=== PATIENT | female | born 1990 | race African-American/Black ===

== ENCOUNTER 2017-09-11 14:02 | Emergency (ER) | payer OTHER ==
--- NOTE | 2017-09-11 14:51 | ED GI/GU/ABDOMINAL COMPLAINT ---
History of Present Illness General Chief Complaint: Abdominal Pain/Flank Pain Stated Complaint: RT SIDED ABD PAIN SINCE THIS AM Source: patient Exam Limitations: no limitations Vital Signs & Intake/Output Vital Signs & Intake/Output Vital Signs Date Time Temp Pulse Resp B/P B/P Pulse O2 O2 Flow FiO2 Mean Ox Delivery Rate 09/11 1623 98.1 68 18 118/56 99 Room Air 09/11 1451 Room Air 09/11 1450 68 18 156/89 99 Room Air 09/11 1406 99.0 79 18 142/82 97 Room Air Room Air Allergies Coded Allergies: No Known Allergies (05/30/17) Reconcile Medications Oxycodone HCl/Acetaminophen (Percocet 5-325 MG Tablet) 5 MG-325 MG TABLET 1 TAB PO TID PRN KIDNEY STONE Propranolol HCl 10 MG TABLET 1 TAB PO PRN ANXIETY (Reported) Triage Note: TRIAGE: 27 Y/O FEMALE PRESENTS C/O LRQ ABDOMINAL PAIN AND NAUSEA SICNE THIS MORNING. DENIES URINARY SYMPTOMS. Triage Nurses Notes Reviewed? yes ? n Is pt currently ? No HPI: 27yo female who presents today with abdominal pain that started this morning. Pt ate out for dinner yesterday and felt fine when she went to bed last night. Pt woke up with sharp pain localized to the right upper quadrant with radiation to the back and pelvic region. She has had no appetite since the morning and has not eaten anything all day. Pt also complains of diarrhea that started this morning. Denies any fevers, chills, vomitting, chest pain, shortness of breathe, dysuria, gross blood. LMP was at the end of July and is expected at any time. Pt denies any chance of as she in a monogomous relationship with her female fiance. No sick contacts. Past History Travel History Traveled to [place] past 21 day No Medical History Any Pertinent Medical History? 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 No Review of Systems Review of Systems Constitutional: Reports: no symptoms. EENTM: Reports: no symptoms. Respiratory: Reports: no symptoms. Cardiovascular: Reports: no symptoms. GI: Reports: no symptoms. Genitourinary: Reports: no symptoms. Musculoskeletal: Reports: no symptoms. Skin: Reports: no symptoms. Neurological/Psychological: Reports: no symptoms. Hematologic/Endocrine: Reports: no symptoms. Immunologic/Allergic: Reports: no symptoms. All Other Systems: Reviewed and Negative Physical Exam Physical Exam General Appearance: well developed/nourished, no apparent distress Head: atraumatic, normal appearance Eyes: Bilateral: normal appearance. Ears, Nose, Throat, Mouth: hearing grossly normal, moist mucous membrane Neck: normal inspection, supple, full range of motion Respiratory: normal breath sounds, chest non-tender, no respiratory distress Cardiovascular: regular rate/rhythm Gastrointestinal: soft, non-tender Back: normal inspection, normal range of motion Extremities: normal range of motion Neurologic/Psych: awake, alert, oriented x 3, normal mood/affect Skin: intact, normal color, warm/dry Core Measures ACS in differential dx? No Sepsis Present: No Sepsis Focused Exam Completed? No Progress Differential Diagnosis: AAA, AMI, appendicitis, biliary colic, bowel obstruction , colon cancer, cholecystitis, diverticulitis, ectopic , endometritis, esophageal varices, gastritis, hepatitis, hernia, hemorrhoids, ischemic bowel, inflamm bowel dis, intrauterine , kidney stone, [place] tear, ovarian cyst, ovarian torsion, pancreatitis, PID/cervicitis, peptic ulcer, PUD/ GERD, perforated viscous, SBO, threatened AB, UTI/pyelo Plan of Care: Orders Procedure Date/time Status URINE 09/11 140 Complete URINALYSIS 09/11 140 Complete LIPASE 09/11 140 Complete COMPREHENSIVE METABOLIC PANEL 09/11 140 Complete CBC WITHOUT DIFFERENTIAL 09/11 1405 Complete Laboratory Tests 09/11/17 1517: Urine Color YEL, Urine Clarity CLEAR, Urine pH 6.0, Ur Specific [place] 1.025, Urine Protein NEG, Urine Ketones NEG, Urine Nitrite NEG, Urine Bilirubin NEG, Urine Urobilinogen 0.2, Ur Leukocyte Esterase NEG, Ur Microscopic SEDIMENT EXAMINED, Urine RBC FEW H, Urine WBC 1-3 H, Ur Epithelial Cells FEW, Urine Bacteria FEW H, Urine Hemoglobin TRACE-INTACT, Urine Glucose NEG, Urine Test NEGATIVE 09/11/17 1444: Anion Gap 12, Estimated GFR > 60, BUN/Creatinine Ratio 16.3, Glucose 94, Calcium 9.5, Total Bilirubin 0.3, AST 15, ALT 28, Alkaline Phosphatase 63, Total Protein 6.8, Albumin 3.8, Globulin 3.0, Albumin/Globulin Ratio 1.3, Lipase 46, CBC w Diff NO MAN DIFF REQ, RBC 4.95, MCV 69.1 L, MCH 21.8 L, MCHC 31.6 L, RDW 16.8 H, MPV 8.3, Gran % 47.6, Lymphocytes % 44.2, Monocytes % 6.6, Eosinophils % 1.2 , Basophils % 0.4, Absolute Granulocytes 4.7, Absolute Lymphocytes 4.3 H, Absolute Monocytes 0.6, Absolute Eosinophils 0.1, Absolute Basophils 0 Diagnostic Imaging: Viewed by Me: CT Scan, Ultrasound. Discussed w/RAD: CT Scan, Ultrasound. Radiology Impression: PATIENT: ROMANA PRATT PRESENT AGE: 27 PATIENT ACCOUNT NO: [id number] : 92 LOCATION: [facility] ORDERING PHYSICIAN: Onel Restrepo MD SERVICE DATE: 09/11/17 EXAM TYPE: US - US -LIMITED ABDOMEN EXAMINATION: US ABDOMEN LIMITED CLINICAL INFORMATION: Right upper quadrant pain.. COMPARISON: None TECHNIQUE: Real-time imaging of the right upper quadrant abdominal viscera. Color Doppler exam used. FINDINGS: PANCREAS: Normal. LIVER: There is mild increased diffuse echogenicity of liver parenchyma due to fatty change. The liver is slightly prominent in size measuring 19 cm superior inferior. No focal liver lesion. No intrahepatic bile duct dilatation. GALLBLADDER: Normal. The gallbladder is physiologically distended without evidence of stones, sludge, polyps, wall thickening or pericholecystic fluid. COMMON BILE DUCT: Normal in caliber measuring 0.2 cm in diameter. RIGHT KIDNEY: Normal. No hydronephrosis. No renal calculi or focal parenchymal lesions. The kidney measures 12.7 cm in maximum dimension. FREE FLUID: None. IMPRESSION: 1. No acute abnormality. 2. Diffuse fatty change of liver. Mild hepatomegaly. 3. No gallstone or acute change of gallbladder. No bile duct dilatation. DICTATED BY: Rocco Paredes MD DATE/TIME DICTATED:09/11/171551 TANK FURNACE OPERATOR:ANDREINA DATE/TIME TRANSCRIBED:09/11/171551 CONFIDENTIAL, DO NOT COPY WITHOUT APPROPRIATE AUTHORIZATION. <Electronically signed in Other Vendor System> SIGNED BY: Rocco Paredes MD 09/11/17 7403, PATIENT: ROMANA PRATT PRESENT AGE: 27 PATIENT ACCOUNT NO: [id number] : 92 LOCATION: [facility] ORDERING PHYSICIAN: Onel Restrepo MD SERVICE DATE: 09/11/17 EXAM TYPE: CAT - CT ABD & PELVIS W/O IV CONTRAS EXAMINATION: CT ABDOMEN AND PELVIS WITHOUT CONTRAST CLINICAL INFORMATION: Right upper quadrant pain. Right flank pain. COMPARISON: None TECHNIQUE: Multidetector volumetric imaging was performed from the superior aspect of the liver through the pubic symphysis. Sagittal and coronal reformatted images were obtained on the technologist's workstation. DLP: 1293.88 mGy-cm FINDINGS: LUNG BASES: The visualized lung bases are unremarkable. LIVER, GALLBLADDER, AND BILIARY TREE: No focal liver lesion. No intrapelvic bile duct dilatation. The right lobe of liver measures 20 cm superior inferior. The gallbladder is unremarkable with no evidence of radiopaque gallstones, gallbladder wall thickening, or obvious pericholecystic inflammatory changes. PANCREAS: Unremarkable. SPLEEN: Unremarkable. ADRENAL GLANDS: Unremarkable. KIDNEYS AND URETERS: There is no hydronephrosis of either kidney. There is however a 4 x 5 mm stone at the right ureteropelvic junction, axial image 276 (3 ). There is no hydroureter. Left kidney and collecting system are normal. The kidneys are of normal size and contour. BLADDER: Unremarkable. GASTROINTESTINAL TRACT: The small and large bowel are unremarkable. The appendix is unremarkable. ABDOMINAL WALL: No significant hernia is appreciated. LYMPH NODES: Normal. VASCULAR: Unremarkable. PELVIC VISCERA: There is a right adnexal cystic lesion likely related to the ovary measuring 4.5 x 3.7 x 3.1 cm. Density measurement 14 Hounsfield units. The left ovary measures 2.6 x 2.9 x 2.5 cm. The uterus is anteverted. There is no fluid in the cul-de-sac. OSSEOUS STRUCTURES: Unremarkable. IMPRESSION: 1. 4 x 5 mm stone at the right ureterovesical junction without hydronephrosis or hydroureter. 2. Right adnexal cyst measuring 4.5 cm. Initial ED EKG: none Departure Departure Disposition: HOME OR SELF CARE Condition: Stable Clinical Impression Primary Impression: Nephrolithiasis Secondary Impressions: Renal colic on right side Referrals: Shaka KOROMA,Bill Quintero Patient Has No Primary Care Dr (PCP/Family) Additional Instructions: Follow up with the urologist. Drink plenty of water. You can take Motrin for mild pain and Percocet for severe pain, but do not drive or operate machinery while taking Percocet, as it may cause you to be sleepy or confused. If you experience fever, chills, change in urine, worsening pain, or any other new or worsening symptom, return to ER. Departure Forms: Customer Survey General Discharge Information Prescriptions: Current Visit Scripts Oxycodone HCl/Acetaminophen (Percocet 5-325 MG Tablet) 1 TAB PO TID PRN KIDNEY STONE #15 TAB
[2017-09-11 14:58] LABS: ABSOLUTE BASOPHIL COUNT 0 /CUMM (0.0-0.2); ABSOLUTE EOSINOPHIL COUNT 0.1 /CUMM (0.0-0.7); ABSOLUTE GRANULOCYTE CT 4.7 /CUMM (1.4-6.5); ABSOLUTE LYMPH COUNT 4.3 /CUMM (1.2-3.4); ABSOLUTE MONOCYTE COUNT 0.6 /CUMM (0.10-0.60); BASOPHIL % 0.4 % (0.0-2.0); EOSINOPHIL % 1.2 % (0-5); GRANULOCYTE % 47.6 % (42.2-75.2); HEMATOCRIT 34.2 % (37-47); MEAN CORPUSCULAR HGB 21.8 PG (27.0-31.0); MEAN CORPUSCULAR HGB CONC 31.6 G/DL (33.0-37.0); MEAN CORPUSCULAR VOLUME 69.1 FL (81.0-99.0); MEAN PLATELET VOLUME 8.3 FL (7.4-10.4); PLATELET COUNT 488 /CUMM (130-400); RBC DISTRIBUTION WIDTH 16.8 % (11.5-14.5); RED BLOOD CELL CT 4.95 /CUMM (4.20-5.40)
[2017-09-11 15:05] LABS: WHITE BLOOD CELL COUNT 9.8 /CUMM (4.8-10.8)
--- NOTE | 2017-09-11 15:57 | ULTRASOUND REPORT ---
EXAMINATION: US ABDOMEN LIMITED CLINICAL INFORMATION: Right upper quadrant pain.. COMPARISON: None TECHNIQUE: Real-time imaging of the right upper quadrant abdominal viscera. Color Doppler exam used. FINDINGS: PANCREAS: Normal. LIVER: There is mild increased diffuse echogenicity of liver parenchyma due to fatty change. The liver is slightly prominent in size measuring 19 cm superior inferior. No focal liver lesion. No intrahepatic bile duct dilatation. GALLBLADDER: Normal. The gallbladder is physiologically distended without evidence of stones, sludge, polyps, wall thickening or pericholecystic fluid. COMMON BILE DUCT: Normal in caliber measuring 0.2 cm in diameter. RIGHT KIDNEY: Normal. No hydronephrosis. No renal calculi or focal parenchymal lesions. The kidney measures 12.7 cm in maximum dimension. FREE FLUID: None. IMPRESSION: 1. No acute abnormality. 2. Diffuse fatty change of liver. Mild hepatomegaly. 3. No gallstone or acute change of gallbladder. No bile duct dilatation.
--- NOTE | 2017-09-11 16:19 | CT SCAN REPORT ---
EXAMINATION: CT ABDOMEN AND PELVIS WITHOUT CONTRAST CLINICAL INFORMATION: Right upper quadrant pain. Right flank pain. COMPARISON: None TECHNIQUE: Multidetector volumetric imaging was performed from the superior aspect of the liver through the pubic symphysis. Sagittal and coronal reformatted images were obtained on the technologist's workstation. DLP: 1293.88 mGy-cm FINDINGS: LUNG BASES: The visualized lung bases are unremarkable. LIVER, GALLBLADDER, AND BILIARY TREE: No focal liver lesion. No intrapelvic bile duct dilatation. The right lobe of liver measures 20 cm superior inferior. The gallbladder is unremarkable with no evidence of radiopaque gallstones, gallbladder wall thickening, or obvious pericholecystic inflammatory changes. PANCREAS: Unremarkable. SPLEEN: Unremarkable. ADRENAL GLANDS: Unremarkable. KIDNEYS AND URETERS: There is no hydronephrosis of either kidney. There is however a 4 x 5 mm stone at the right ureteropelvic junction, axial image 276 (3). There is no hydroureter. Left kidney and collecting system are normal. The kidneys are of normal size and contour. BLADDER: Unremarkable. GASTROINTESTINAL TRACT: The small and large bowel are unremarkable. The appendix is unremarkable. ABDOMINAL WALL: No significant hernia is appreciated. LYMPH NODES: Normal. VASCULAR: Unremarkable. PELVIC VISCERA: There is a right adnexal cystic lesion likely related to the ovary measuring 4.5 x 3.7 x 3.1 cm. Density measurement 14 Hounsfield units. The left ovary measures 2.6 x 2.9 x 2.5 cm. The uterus is anteverted. There is no fluid in the cul-de-sac. OSSEOUS STRUCTURES: Unremarkable. IMPRESSION: 1. 4 x 5 mm stone at the right ureterovesical junction without hydronephrosis or hydroureter. 2. Right adnexal cyst measuring 4.5 cm.
[2017-09-11 16:23] VITALS: BP 118/56
[2017-09-11] MEDS ORDERED: PERCOCET 5-3251 EACH PO (16:34)
[2017-09-11] MEDS ORDERED: PROPRANOLOL HCL10 M1 PO (16:38)
== END 2017-09-11 16:35 ==
LOC: ERH 14:02
PROVIDERS: Physician Assistant Medical
DX: N20.0 Calculus of kidney (principal); N23 Unspecified renal colic
CPT/HCPCS: 74176; 81001; 81025; 96374; 96375; J1885; J2405

== ENCOUNTER 2017-09-17 15:44 | Observation (INO) | payer OTHER ==
[~2017-09-17] VITALS: Ht 160 cm; Wt 117.9 kg
[~2017-09-17 15:44] MED LIST: PERCOCET 5-3251 EACH PO; PROPRANOLOL HCL10 M1 PO
[2017-09-17 16:37] LABS: ABSOLUTE BASOPHIL COUNT 0 /CUMM (0.0-0.2); ABSOLUTE EOSINOPHIL COUNT 0.1 /CUMM (0.0-0.7); ABSOLUTE GRANULOCYTE CT 6.3 /CUMM (1.4-6.5); BASOPHIL % 0.3 % (0.0-2.0); EOSINOPHIL % 0.8 % (0-5); GRANULOCYTE % 66.9 % (42.2-75.2); HEMATOCRIT 31.7 % (37-47); MEAN CORPUSCULAR HGB 21.7 PG (27.0-31.0); MEAN CORPUSCULAR HGB CONC 31.9 G/DL (33.0-37.0); MEAN CORPUSCULAR VOLUME 67.9 FL (81.0-99.0); MEAN PLATELET VOLUME 8.1 FL (7.4-10.4); PLATELET COUNT 448 /CUMM (130-400); RBC DISTRIBUTION WIDTH 16.7 % (11.5-14.5); RED BLOOD CELL CT 4.67 /CUMM (4.20-5.40); WHITE BLOOD CELL COUNT 9.4 /CUMM (4.8-10.8)
--- NOTE | 2017-09-17 17:20 | ED GENERAL ADULT ---
History of Present Illness General Chief Complaint: General Adult Stated Complaint: "KIDNEY STONE,HIGH HEART RT,FEVER" 111 ON PULSE OX Source: patient, family Exam Limitations: no limitations Vital Signs & Intake/Output Vital Signs & Intake/Output Vital Signs Date Time Temp Pulse Resp B/P B/P Pulse O2 O2 Flow FiO2 Mean Ox Delivery Rate 09/17 1821 99.5 87 18 137/67 97 Room Air 09/17 1656 102.4 09/17 1551 100.7 103 18 127/85 98 Room Air Allergies Coded Allergies: oxycodone (VOMITING 09/17/17) Reconcile Medications Oxycodone HCl/Acetaminophen (Percocet 5-325 MG Tablet) 5 MG-325 MG TABLET 1 TAB PO TID PRN KIDNEY STONE Propranolol HCl 10 MG TABLET 1 TAB PO PRN ANXIETY (Reported) Triage Note: PT WAS DX W NEPHROLITHIASIS LAST WEEK TO RIGHT SIDE, HAS APPT WITH DR NEELY SEP 26 FOR LITHOTRIPSY BUT FEELS THE PAIN HAS BEEN GETTING WORSE, MOVING MORE CENTRALLY TO BACK AND HAS HAD FEVERS. STATES TEMP WAS 102 AT HOME, 100.7 IN TRIAGE. HAS BEEN TAKING 1,500MG OF TYLENOL AT A TIME AND STATES SHE WAS TOLD NOT TO TAKE NSAIDS. Triage Nurses Notes Reviewed? yes : No Patient currently breastfeeds: No HPI: 27-year-old female comes in with pain in the right side. She reports that she was recently diagnosed with renal colic. She was seen by the urologist and had an appointment for stent placement. She continues to have pain and started having fevers with worsening pain so she came in for evaluation. She denies vomiting. She denies diarrhea. Past History Travel History Traveled to [place] past 21 day No Medical History Any Pertinent Medical History? 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 Yes Review of Systems Review of Systems Constitutional: Reports: chills, fever. EENTM: Denies: blurred vision, double vision, visual changes. Respiratory: Denies: cough, hemoptysis, orthopnea. Cardiovascular: Denies: chest pain, edema, orthopena. GI: Reports: abdominal pain, nausea. Denies: bloating, constipation. Genitourinary: Denies: dysuria, frequency, hematuria. Musculoskeletal: Denies: back pain, gout, joint pain. Skin: Denies: cysts, change in skin color. Neurological/Psychological: Denies: anxiety, ataxia. Physical Exam Physical Exam General Appearance: well developed/nourished, no apparent distress, alert, awake Head: atraumatic, normal appearance Eyes: Bilateral: EOMI, pale conjunctivae. Ears, Nose, Throat: normal pharynx, normal ENT inspection Neck: normal inspection, supple Respiratory: normal breath sounds, chest non-tender, no respiratory distress Gastrointestinal: see below Back: normal inspection, normal range of motion Extremities: normal inspection, normal capillary refill, normal range of motion Neurologic/Psych: no motor/sensory deficits, awake, alert, oriented x 3 Skin: intact, normal color, warm/dry Comments: RLQ tendereness and R CVAT. no preitoneal signs. no rash. normal BS Core Measures ACS in differential dx? No CVA/TIA Diagnosis: No Sepsis Present: No Sepsis Focused Exam Completed? No Progress Differential Diagnoses Review of old records from September 11 showed that the patient had a right UVJ stone. She now had complete relief, she continued to have the pain and saw the urologist. The patient now has signs of urinary infection with a fever. We will check a lactate, start the patient on antibiotics. I have spoken with the urologist, Dr. Neely and she will accept patient for admission. Plan of Care: Orders Procedure Date/time Status Nothing by Mouth 09/18 B Active CBC WITHOUT DIFFERENTIAL 09/18 0600 Active BASIC ELECTROLYTES PLUS BUN&CR 09/18 0600 Active Regular Diet 09/17 D Complete Pathway - chart 09/17 1752 Active Patient Data 09/17 1752 Active Code Status 09/[address] in observation 09/17 1731 Active ED Holding Orders 09/17 1731 Active Code Status 09/17 1731 Complete Saline Lock 09/17 1706 Active LACTIC ACID 09/17 1706 Complete CULTURE,URINE 09/17 1550 Active URINALYSIS 09/17 1550 Complete LIPASE 09/17 1550 Complete CBC WITHOUT DIFFERENTIAL 09/17 1550 Complete BASIC METABOLIC PANEL 09/17 1550 Complete VTE Mechanical Prophylaxis 09/17 UNK Active Vital Signs 09/17 UNK Active Intake & Output 09/17 UNK Active Activity/Ambulation 09/17 UNK Active Current Medications Sig/Kb Start time Last Medication Dose Stop Time Status Admin Ceftriaxone Sodium 1,000 MG DAILY@1730 09/18 1730 AC (Rocephin) Acetaminophen 1,000 MG Q6H 09/17 1800 AC (Ofirmev) 09/18 1214 N/A 1 UNIT (No Carrier) Dextrose/Sodium 1,000 ML .Q10H 09/17 1800 AC Chloride (D5W-1/2 Normal Saline 1000ML) Morphine Sulfate 4 MG Q3P PRN 09/17 1800 AC (MORPHINE SULFATE) Morphine Sulfate 6 MG Q3P PRN 09/17 1800 AC (MORPHINE SULFATE) Ondansetron HCl 4 MG Q8P PRN 09/17 1800 AC (Zofran) Laboratory Tests 09/17/17 1630: Urine Color YEL, Urine Clarity HAZY H, Urine pH 6.0, Ur Specific [place] 1.015, Urine Protein TRACE H, Urine Ketones 15 H, Urine Nitrite NEG, Urine Bilirubin NEG, Urine Urobilinogen 4.0 H, Ur Leukocyte Esterase SMALL H, Ur Microscopic SEDIMENT EXAMINED, Urine RBC 3-5, Urine WBC 3-5 H, Ur Epithelial Cells MOD H, Urine Bacteria MANY H, Urine Hemoglobin SMALL H, Urine Glucose NEG 09/17/17 1624: Lactic Acid 0.9 09/17/17 1624: Anion Gap 11, Estimated GFR > 60, BUN/Creatinine Ratio 8.0, Glucose 87, Calcium 9.1, Lipase 31, CBC w Diff NO MAN DIFF REQ, RBC 4.67, MCV 67.9 L, MCH 21.7 L, MCHC 31.9 L, RDW 16.7 H, MPV 8.1, Gran % 66.9, Lymphocytes % 21.7, Monocytes % 10.3 H, Eosinophils % 0.8, Basophils % 0.3, Absolute Granulocytes 6.3, Absolute Lymphocytes 2.0, Absolute Monocytes 1.0 H, Absolute Eosinophils 0.1, Absolute Basophils 0 Microbiology 09/17 1630 URINE ROUT: Urine Culture - RECD Initial ED EKG: none Departure Departure Time of Disposition: 1718 Disposition: STILL A PATIENT Condition: Stable Clinical Impression Primary Impression: Renal colic Secondary Impressions: Renal colic on right side, UTI (urinary tract infection) Referrals: Patient Has No Primary Care Dr (PCP/Family) Departure Forms: Customer Survey General Discharge Information Observation Note Spoke With: Liz Neely MD Rationale for Observation: My rational for observation is as follows infected kidney stone, the patient will have a stent placed and needs IV antibiotics to prevent renal failure and sepsis. Critical Care Note Critical Care Note Critical Care Time: non-applicable
--- NOTE | 2017-09-17 19:34 | History & Physical Pre-Op ---
General Information and HPI Source of Information: patient History of Present Illness: This is a 27 year-old female with a history of anxiety and depression who presents with right sided flank pain with associated fever of 102 F. She reports taking three 500 mg tabs of Tylenol at home today. She reports that she was recently diagnosed at [facility] with a right kidney stone last week. She followed up with Dr. Neely and was scheduled to have a lithotripsy on 09/26/17. Due to worsening and persistent pain, she returned to the ER for further evaluation. She reports increased urine frequency due to increaed oral intake. She denies hematuia, dysuria, chills, night sweats, nausea, vomiting or bowel changes. 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 Surgical History Pertinent Surgical History: non-contributory Past Family/Social History Psychosocial History ETOH Use: denies use Illicit Drug Use: denies illicit drug use Employment History Employment: Employed ([employer]) Review of Systems Review of Systems: Refer to H&P Exam & Diagnostic Data Last 24 Hrs of Vital Signs/I&O Vital Signs Date Time Temp Pulse Resp B/P B/P Pulse O2 O2 Flow FiO2 Mean Ox Delivery Rate 09/17 1821 99.5 87 18 137/67 97 Room Air 09/17 1656 102.4 09/17 1551 100.7 103 18 127/85 98 Room Air Intake & Output 09/17 1600 09/17 0800 09/17 0000 Intake Total Output Total Balance Patient 260 lb Weight Physical Exam: General: Resting comfortably in nad HEENT: NC/AT, sclera anicteric, moist mucus membranes Cardiac: S1S2 noted, RRR Lungs: Good inspiratory effort, CTAB Abdomen: Soft, obese, with right mid-lower quadrant tenderness extending to the lateral side, no cva tenderness noted B/L, no rebound or guarding noted Extremities: no significant edema or calf tenderness Last 24 Hrs of Labs/Thiago: Laboratory Tests 09/17/17 1630: Urine Color YEL, Urine Clarity HAZY H, Urine pH 6.0, Ur Specific [place] 1.015, Urine Protein TRACE H, Urine Ketones 15 H, Urine Nitrite NEG, Urine Bilirubin NEG, Urine Urobilinogen 4.0 H, Ur Leukocyte Esterase SMALL H, Ur Microscopic SEDIMENT EXAMINED, Urine RBC 3-5, Urine WBC 3-5 H, Ur Epithelial Cells MOD H, Urine Bacteria MANY H, Urine Hemoglobin SMALL H, Urine Glucose NEG 09/17/17 1624: Lactic Acid 0.9 09/17/17 162: Anion Gap 11, Estimated GFR > 60, BUN/Creatinine Ratio 8.0, Glucose 87, Calcium 9.1, Lipase 31, CBC w Diff NO MAN DIFF REQ, RBC 4.67, MCV 67.9 L, MCH 21.7 L, MCHC 31.9 L, RDW 16.7 H, MPV 8.1, Gran % 66.9, Lymphocytes % 21.7, Monocytes % 10.3 H, Eosinophils % 0.8, Basophils % 0.3, Absolute Granulocytes 6.3, Absolute Lymphocytes 2.0, Absolute Monocytes 1.0 H, Absolute Eosinophils 0.1, Absolute Basophils 0 Microbiology 09/17 163 URINE ROUT: Urine Culture - RECD Diagnostic Data Other Results SERVICE DATE: 09/11/17 EXAM TYPE: CAT - CT ABD & PELVIS W/O IV CONTRAS EXAMINATION: CT ABDOMEN AND PELVIS WITHOUT CONTRAST CLINICAL INFORMATION: Right upper quadrant pain. Right flank pain. COMPARISON: None TECHNIQUE: Multidetector volumetric imaging was performed from the superior aspect of the liver through the pubic symphysis. Sagittal and coronal reformatted images were obtained on the technologist's workstation. DLP: 1293.88 mGy-cm FINDINGS: LUNG BASES: The visualized lung bases are unremarkable. LIVER, GALLBLADDER, AND BILIARY TREE: No focal liver lesion. No intrapelvic bile duct dilatation. The right lobe of liver measures 20 cm superior inferior. The gallbladder is unremarkable with no evidence of radiopaque gallstones, gallbladder wall thickening, or obvious pericholecystic inflammatory changes. PANCREAS: Unremarkable. SPLEEN: Unremarkable. ADRENAL GLANDS: Unremarkable. KIDNEYS AND URETERS: There is no hydronephrosis of either kidney. There is however a 4 x 5 mm stone at the right ureteropelvic junction, axial image 276 (3). There is no hydroureter. Left kidney and collecting system are normal. The kidneys are of normal size and contour. BLADDER: Unremarkable. GASTROINTESTINAL TRACT: The small and large bowel are unremarkable. The appendix is unremarkable. ABDOMINAL WALL: No significant hernia is appreciated. LYMPH NODES: Normal. VASCULAR: Unremarkable. PELVIC VISCERA: There is a right adnexal cystic lesion likely related to the ovary measuring 4.5 x 3.7 x 3.1 cm. Density measurement 14 Hounsfield units. The left ovary measures 2.6 x 2.9 x 2.5 cm. The uterus is anteverted. There is no fluid in the cul-de-sac. OSSEOUS STRUCTURES: Unremarkable. IMPRESSION: 1. 4 x 5 mm stone at the right ureterovesical junction without hydronephrosis or hydroureter. 2. Right adnexal cyst measuring 4.5 cm. Assessment/Plan Assessment/Plan: This is an 27 year-old female with a history of anxitey, depression and a known 4 x 5 mm stone at the right ureterovesical junction who presents with renal colic and associated fever. Patient will be placed in observation in anticipation of surgical intervention tomorrow morning for stent placement with Dr. Neely. She may have a regular diet for dinner and kept npo after midnight with IV fluids. She recieved IV Rocephin in the ER, which she will remain on until surgery tomorrow. She will be provided with IV analgesics, antipyretics and antimetics. Plan of care discussed with Dr. Neely who is in agreement. As Ranked By This Provider Problem List: 1. Renal colic on right side
[2017-09-17 21:59] VITALS: BP 116/74
[2017-09-18 06:20] VITALS: BP 118/70
--- NOTE | 2017-09-18 07:03 | PN- Student ---
Parvin Fofana 09/18/17 0657: Subjective Subjective: This morning she is feeling much better than when she came into the ED yesterday. Had some slight nausea last night requiring zofran, no epidoes of vomiting. Tolerated dinner last night. Pt's only complaint at this time is right sided flank pain that is well controlled w/ pain regimen. Denies cp,sob, dysuria , hematuria. Pt is scheduled to go for right sided stent placement today. Objective Objective: Vital Signs Date Time Temp Pulse Resp B/P B/P Pulse O2 O2 Flow FiO2 Mean Ox Delivery Rate 09/18 0620 98.8 90 18 118/70 97 Room Air 09/18 0012 99.1 09/17 2159 98.2 92 18 116/74 98 09/17 2000 99.2 09/17 1821 99.5 87 18 137/67 97 Room Air 09/17 1656 102.4 09/17 1551 100.7 103 18 127/85 98 Room Air Last 24 Hours I&Os 09/18 0800 09/18 0000 09/17 1600 Intake Total 1400 Output Total Balance 1400 Intake, IV 1300 Intake, Oral 100 Patient 260 lb 260 lb Weight Laboratory Tests 09/17/17 1630: Urine Color YEL, Urine Clarity HAZY H, Urine pH 6.0, Ur Specific [place] 1.015, Urine Protein TRACE H, Urine Ketones 15 H, Urine Nitrite NEG, Urine Bilirubin NEG, Urine Urobilinogen 4.0 H, Ur Leukocyte Esterase SMALL H, Ur Microscopic SEDIMENT EXAMINED, Urine RBC 3-5, Urine WBC 3-5 H, Ur Epithelial Cells MOD H, Urine Bacteria MANY H, Urine Hemoglobin SMALL H, Urine Glucose NEG 09/17/17 1624: Lactic Acid 0.9 09/17/17 1624: Anion Gap 11, Estimated GFR > 60, BUN/Creatinine Ratio 8.0, Glucose 87, Calcium 9.1, Lipase 31, CBC w Diff NO MAN DIFF REQ, RBC 4.67, MCV 67.9 L, MCH 21.7 L, MCHC 31.9 L, RDW 16.7 H, MPV 8.1, Gran % 66.9, Lymphocytes % 21.7, Monocytes % 10.3 H, Eosinophils % 0.8, Basophils % 0.3, Absolute Granulocytes 6.3, Absolute Lymphocytes 2.0, Absolute Monocytes 1.0 H, Absolute Eosinophils 0.1, Absolute Basophils 0 Microbiology Date/Time Procedure - Status Source Growth 09/17 1630 Urine Culture - RECD URINE ROUT Orders Procedure Date/time Status Nothing by Mouth 09/18 B Active CBC WITHOUT DIFFERENTIAL 09/18 06 Active BASIC ELECTROLYTES PLUS BUN&CR 09/18 06 Active Regular Diet 09/17 D Complete Vital Signs 09/17 2036 Active Teach/Educate 09/17 2036 Active Pain Treatment and Response 09/17 2036 Active Nutritional Intake, Monitor 09/17 2036 Active Isolation 09/17 2036 Active Intake & Output 09/17 2036 Active Patient Care Conference 09/17 2036 Active Activity/Ambulation 09/17 2036 Active Pathway - chart 09/17 175 Active Patient Data 09/17 175 Active Code Status 09/[address] in observation 09/17 1731 Active ED Holding Orders 09/17 173 Active Code Status 09/17 1731 Complete Saline Lock 09/17 1706 Active LACTIC ACID 09/17 1706 Complete CULTURE,URINE 09/17 1550 Active URINALYSIS 09/17 1550 Complete LIPASE 09/17 1550 Complete CBC WITHOUT DIFFERENTIAL 09/17 1550 Complete BASIC METABOLIC PANEL 09/17 1550 Complete VTE Mechanical Prophylaxis 09/17 UNK Active Vital Signs 09/17 UNK Active Intake & Output 09/17 UNK Active Activity/Ambulation 09/17 UNK Active Gen: O&Ax3, laying down in bed, in no apparent distress Lungs: CTA Heart: distant heart sounds, S1 and S2 normal, RRR Abd: hypoactive bs, soft, nondistended, right llq and right flank pain upon palpation, no guarding, no rigidity LE: no edema, skin is warm and dry Assessment/Plan Assessment: Pt is a 27 yo female with a PMHx of anxiety and depression that presented with a fever and worsening pain yesterday from a right sided renal stone. Plan: -Pt will go for stent placement today -NPO until surgery -C/w IV fluids -Rocephin perioperatively -ALPS for dvt ppx -No stern, voiding ok -IV tylenol for pain -Urine culture pending -Encourage oob and ambulation -Advance diet after surgery as tolerated -Pt may be d/c'd later today depending on how procedure goes Chalino Mercer 09/18/17 0709: Resident Review Statement Other Findings: Patient seen and examed. Agree with student PA-S note. In short, this is a 27 yo f w/ pmhx of anxiety and depression that presented yesterday with fever with known right kidney stone. She is currently under obs for planned stent by Dr. Neely this morning. She is to remain NPO, IVF hydration , analgesia, antiematics and can likely be dishcarge to home post op depending on how the procedure goes. *Will discuss with attending
[2017-09-18 09:00] VITALS: BP 124/78
--- NOTE | 2017-09-18 10:39 | Patient Discharge Instructions ---
Discharge Instructions General Discharge Information You were seen/treated for: Kidney stone You had these procedures: Kidney stent placement Watch for these problems: fever, chills, sweats, nausea, vomiting Diet Continue normal diet: Yes Acute Coronary Syndrome Inclusion Criteria At DC or during hospital stay patient has or had the following: ACS DIAGNOSIS No Discharge Core Measures Meds if any: Prescribed or Continued at Discharge Meds if any: NOT Prescribed or Continued at Discharge Congestive Heart Failure Inclusion Criteria At DC or during hospital stay patient has or had the following: CHF DIAGNOSIS No Discharge Core Measures Meds if any: Prescribed or Continued at Discharge Meds if any: NOT Prescribed or Continued at Discharge Cerebrovascular accident Inclusion Criteria At DC or during hospital stay patient has or had the following: CVA/TIA Diagnosis No Discharge Core Measures Meds if any: Prescribed or Continued at Discharge Meds if any: NOT Prescribed or Continued at Discharge Venous thromboembolism Inclusion Criteria VTE Diagnosis No VTE Type NONE VTE Confirmed by (Test) NONE Discharge Core Measures - Per Current guidelines, there needs to be overlap - treatment for the first 5 days of Warfarin therapy. - If discharged on Warfarin prior to 5 days of - overlap therapy, the patient will need to be - assessed for post discharge needs including - *Post discharge parental anticoagulation - *Warfarin and/or parental anticoagulation education - *Follow up date to check INR post discharge At least 5 days overlap therapy as Inpatient No Meds if any: Prescribed or Continued at Discharge Note: Overlap Therapy is Warfarin and Anticoagulant Meds if any: NOT Prescribed or Continued at Discharge
--- NOTE | 2017-09-18 10:42 | Cons- Urology ---
General Information and HPI Consulting Request Date of Consult: 09/18/17 Requested By: ER Reason for Consult: right renal colic Source of Information: patient Exam Limitations: no limitations History of Present Illness: This is a 27 year-old female with a history of anxiety and depression who presents with right sided flank pain with associated fever of 102 F. She reports taking three 500 mg tabs of Tylenol at home today. She reports that she was recently diagnosed at [facility] with a right kidney stone last week. She followed up with Dr. Neely and was scheduled to have a lithotripsy on 09/26/17. Due to worsening and persistent pain, she returned to the ER for further evaluation. She reports increased urine frequency due to increased oral intake. She denies hematuria, dysuria, chills, night sweats, nausea, vomiting or bowel changes. She was consented for a cystoscopy and right stent placement given her pain and fever. She was givne adriannahin and her fever has improved. Her urine culture was negative. She will remain on the OR schedule for Sep 26 for the ESWL. Allergies/Medications Allergies: Coded Allergies: oxycodone (VOMITING 09/17/17) Home Med List: Oxycodone HCl/Acetaminophen (Percocet 5-325 MG Tablet) 5 MG-325 MG TABLET 1 TAB PO TID PRN KIDNEY STONE Propranolol HCl 10 MG TABLET 1 TAB PO PRN ANXIETY (Reported) Current Medications: Current Medications Sig/Kb Start time Last Medication Dose Route Stop Time Status Admin Acetaminophen 1,000 MG Q6H 09/17 1800 AC 09/18 N/A 1 UNIT IV 09/18 1214 0605 Acetaminophen 0 .STK-MED ONE 09/17 1726 DC PO Acetaminophen 650 MG ONCE ONE 09/17 1715 DC 09/17 PO 09/17 1716 1740 Ceftriaxone Sodium 1,000 MG DAILY@1730 09/18 1730 AC IV Ceftriaxone Sodium 0 .STK-MED ONE 09/17 1726 DC .ROUTE Ceftriaxone Sodium 1,000 MG ONE ONE 09/17 1709 DC 09/17 IV 09/17 1710 1740 Dextrose/Sodium 1,000 ML .Q10H 09/17 1800 AC 09/18 Chloride IV 0605 Hydromorphone HCl 0 .STK-MED ONE 09/17 1726 DC .ROUTE Hydromorphone HCl 0.5 MG ONCE ONE 09/17 1715 DC 09/17 IV 09/17 1716 1740 Morphine Sulfate 2 MG Q3P PRN 09/18 0715 AC IV Morphine Sulfate 4 MG Q3P PRN 09/18 0715 AC IV Morphine Sulfate 4 MG Q3P PRN 09/17 1800 DC IV Morphine Sulfate 6 MG Q3P PRN 09/17 1800 DC IV Ondansetron HCl 4 MG Q8P PRN 09/17 1800 AC IV Ondansetron HCl 0 .STK-MED ONE 09/17 1725 DC .ROUTE Ondansetron HCl 4 MG ONCE ONE 09/17 1715 DC 09/17 IV 09/17 1716 1740 Propranolol HCl 10 MG DAILY 09/18 09 AC PO Sodium Chloride 1,000 ML BOLUS ONE 09/17 1715 DC 09/17 IV 09/17 1814 1740 Past History Medical History Blood Transfusion Hx: No Neurological: NONE EENT: NONE Cardiovascular: NONE Respiratory: NONE Gastrointestinal: NONE Hepatic: NONE Renal: NONE, nephrolithiasis Musculoskeletal: NONE Psychiatric: anxiety, depression Endocrine: NONE Blood Disorders: NONE Cancer(s): NONE 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 Home Services at Home: None Primary Language: Kiswahili Smoking Status: Never Smoked ETOH Use: denies use Illicit Drug Use: denies illicit drug use Functional Ability ADLs Independent: dressing, eating, toileting, bathing. Ambulation: independent IADLs Independent: shopping, housework, finances, food prep, telephone, transportation , medication admin. Employment History Employment: Employed ([employer]) Retired? no Review of Systems Review of Systems Constitutional: Denies: no symptoms. EENTM: Reports: no symptoms. Cardiovascular: Reports: no symptoms. Respiratory: Reports: no symptoms. GI: Reports: no symptoms. Genitourinary: Reports: pain. Musculoskeletal: Reports: back pain. Skin: Reports: no symptoms. Neurological/Psychological: Reports: no symptoms. Hematologic/Endocrine: Reports: no symptoms. Immunologic/Allergic: Reports: no symptoms. Exam & Diagnostic Data Vital Signs and I&O Vital Signs Date Time Temp Pulse Resp B/P B/P Pulse O2 O2 Flow FiO2 Mean Ox Delivery Rate 09/18 0900 97.9 83 20 124/78 98 09/18 0800 Room Air 09/18 0620 98.8 90 18 118/70 97 Room Air 09/18 0012 99.1 09/17 2159 98.2 92 18 116/74 98 09/17 2000 99.2 09/17 1821 99.5 87 18 137/67 97 Room Air 09/17 1656 102.4 09/17 1551 100.7 103 18 127/85 98 Room Air Intake & Output 09/18 1600 09/18 0809/18 0000 09/17 1600 09/17 0809/17 0000 Intake Total 900 1400 Output Total Balance 900 1400 Intake, IV 900 1300 Intake, Oral 100 Patient 117.934 kg 117.934 kg Weight Physical Exam General Appearance: well developed/nourished, no apparent distress, alert, awake , comfortable Head: atraumatic, normal appearance Eyes: Bilateral: normal appearance. Ears, Nose, Throat: normal ENT inspection Neck: normal inspection Respiratory: normal breath sounds Gastrointestinal: soft, non-tender Rectal: deferred Extremities: normal inspection Neurologic/Psych: awake, alert, oriented x 3 Cranial Nerves: normal hearing, normal speech Skin: intact, normal color, warm/dry Reproductive: Normal female genitalia Last 24 Hours of Labs: Laboratory Tests 09/18 09/17 09/17 0600 1630 1624 Chemistry Sodium Cancelled Potassium Cancelled Chloride Cancelled Carbon Dioxide Cancelled Anion Gap Cancelled BUN Cancelled Creatinine Cancelled BUN/Creatinine Ratio Cancelled Lactic Acid (0.7 - 2.1 mmol/L) 0.9 Hematology CBC w Diff Cancelled WBC Cancelled RBC Cancelled Hgb Cancelled Hct Cancelled MCV Cancelled MCH Cancelled MCHC Cancelled RDW Cancelled Plt Count Cancelled MPV Cancelled Urines Urine Color (YEL,AMB,STR) YEL Urine Clarity (CLEAR) HAZY H Urine pH (5.0 - 8.0) 6.0 Ur Specific [place] (1.001 - 1.035) 1.015 Urine Protein (NEG,<30 MG/DL) TRACE H Urine Ketones (NEG) 15 H Urine Nitrite (NEG) NEG Urine Bilirubin (NEG) NEG Urine Urobilinogen (0.1 - 1.0 EU/dl) 4.0 H Ur Leukocyte Esterase (NEG) SMALL H Ur Microscopic SEDIMENT EXAMINED Urine RBC (0 - 5 /HPF) 3-5 Urine WBC (0 - 2 /HPF) 3-5 H Ur Epithelial Cells (NONE,FEW) MOD H Urine Bacteria (NEG/NONE) MANY H Urine Hemoglobin (NEG) SMALL H Urine Glucose (N MG/DL) NEG 09/17 1624 Chemistry Sodium (137 - 145 mmol/L) 135 L Potassium (3.5 - 5.1 mmol/L) 4.2 Chloride (98 - 107 mmol/L) 99 Carbon Dioxide (22 - 30 mmol/L) 25 Anion Gap (5 - 16) 11 BUN (7 - 17 mg/dL) 8 Creatinine (0.5 - 1.0 mg/dL) 1.0 Estimated GFR (>60 ml/min) > 60 BUN/Creatinine Ratio (7 - 25 %) 8.0 Glucose (65 - 99 mg/dL) 87 Calcium (8.4 - 10.2 mg/dL) 9.1 Lipase (23 - 300 U/L) 31 Hematology CBC w Diff NO MAN DIFF REQ WBC (4.8 - 10.8 /CUMM) 9.4 RBC (4.20 - 5.40 /CUMM) 4.67 Hgb (12.0 - 16.0 G/DL) 10.1 L Hct (37 - 47 %) 31.7 L MCV (81.0 - 99.0 FL) 67.9 L MCH (27.0 - 31.0 PG) 21.7 L MCHC (33.0 - 37.0 G/DL) 31.9 L RDW (11.5 - 14.5 %) 16.7 H Plt Count (130 - 400 /CUMM) 448 H MPV (7.4 - 10.4 FL) 8.1 Gran % (42.2 - 75.2 %) 66.9 Lymphocytes % (20.5 - 51.1 %) 21.7 Monocytes % (1.7 - 9.3 %) 10.3 H Eosinophils % (0 - 5 %) 0.8 Basophils % (0.0 - 2.0 %) 0.3 Absolute Granulocytes (1.4 - 6.5 /CUMM) 6.3 Absolute Lymphocytes (1.2 - 3.4 /CUMM) 2.0 Absolute Monocytes (0.10 - 0.60 /CUMM) 1.0 H Absolute Eosinophils (0.0 - 0.7 /CUMM) 0.1 Absolute Basophils (0.0 - 0.2 /CUMM) 0 Imaging Results: renal US right UPJ stone 5mm Assessment/Plan Assessment/Plan 27yo female with a known right UPJ stone 5mm with renal colic and fever that was new in onset. She was admitted for IV abx and consented for right renal stent to relieve possible obstructed urinary system on the right. IV ceftriaxone improved her fever and pain. Discharge home on po abx after stent placement. Consult Acknowledgment - Thank you for your consult request.
--- NOTE | 2017-09-18 10:47 | Operative Report ---
Operative/Inv Procedure Report Surgery Date: 09/18/17 Name of Procedure: right ureteral stent placment and cystoscopy Pre-Operative Diagnosis: right renal stone at UPJ with fever Post-Operative Diagnosis: same Estimated Blood Loss: scant Surgeon/Arabic Linguist: Liz Neely MD Anesthesia: laryngeal mask airway Drains: 6x24cm stent Complications: none Condition: stable Operative Indication: right renal colic with obstructing stone and fever Operative/Procedure Note Note: 27-year-old female with a history of right renal stone 5 mm at the UPJ. She had continuing and worsening right renal colic with fever of 102. She was admitted was for IV antibiotics and her fever improved. She was consented for right renal ureteral stent to relieve a possible obstruction. She would remain on the OR schedule for shockwave lithotripsy on September 26. The risks benefits and alternatives of the stent were given and she wished to proceed. All questions were answered. She was marked on the right hand. She was taken to the operating room and placed on the operating table in the supine position. Timeout was performed and IV antibiotics had been given previously. She was placed in the dorsolithotomy position after LMA anesthesia was begun. She was prepped and draped in standard sterile fashion. Fluoroscopy was set up. Cystoscopy was performed the bladder was globally inspected. There were no abnormalities appreciated and the ureteral orifices were in their normal anatomic position. The right ureteral orifice was cannulated with a solo part guidewire and seen to be in the renal pelvis by fluoroscopic imaging. A 6 x 24 cm ureteral stent was placed over the wire without difficulty. It was seen to be in good position and the wire was removed. The proximal portion was seen in the renal pelvis and the distal portion was seen in the bladder fluoroscopically and visually. The bladder was emptied. Patient was cleaned of the Betadine solution. She was transferred to recovery room stable condition. Findings: No abnormalities in the bladder and well positioned right ureteral stent Discharge Disposition: PACU
--- NOTE | 2017-09-18 10:50 | Surgical Discharge Summary ---
Visit Information Visit Dates Admission Date: 09/17/17 Discharge Date: 09/18/17 History of Present Illness Chief Complaint: Right renal colic and fever. 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 Home Services at Home: None What is Your Primary Language? Swedish ETOH Use: denies use Review of Systems: Significant significant only for right renal colic and fever Physical Exam: Right CVA tenderness and fever that resolved with IV antibiotics Hospital Course Course Attending Physician: Liz Neely MD Primary Care Physician: Patient Has No Primary Care Dr Hospital Course: Uneventful after receiving IV ceftriaxone Complications: None Allergies: Coded Allergies: oxycodone (VOMITING 09/17/17) Significant Procedures: Right ureteral stent placement and cystoscopy Pertinent Lab Results: None Disposition Summary Disposition Principal Diagnosis: Right renal colic with obstructing stone and fever Additional Diagnosis: No other diagnosis Discharge Disposition: home or self care Discharge Instructions General Discharge Information Code Status: Full Code Patient's Diet: Regular Patient's Activity: Regular Follow-Up Instructions/Appts: Follow-up on September 26 for extracorporeal shockwave lithotripsy in the [facility] Medications at Discharge Discharge Medications: Continue taking these medications: Oxycodone HCl/Acetaminophen (Percocet 5-325 MG Tablet) 5 MG-325 MG TABLET 1 Tablet ORAL THREE TIMES DAILY as needed for KIDNEY STONE Qty = 15 Propranolol HCl (Propranolol HCl) 10 MG TABLET 1 Tablet ORAL as needed for ANXIETY
[2017-09-18] MEDS ORDERED: CIPRO500 M1 PO (10:54)
[2017-09-18 11:00] VITALS: BP 122/82
--- NOTE | 2017-09-18 16:41 | RADIOLOGY REPORT ---
EXAMINATION: X-RAY URETEROSCOPY IN THE OPERATING ROOM CLINICAL INFORMATION: Right cystoscopy with stent placement. COMPARISON: CT abdomen and pelvis 09/11/2017. TECHNIQUE: Intraoperative fluoroscopic guidance was provided in the operating room for Dr. Neely to perform right cystoscopy and stent placement. Fluoroscopy time: 0.4 minutes. Number of images: 3. FINDINGS: Internal ureteral stent placement on the right. Refer to operative notes for details. IMPRESSION: Administrative dictation for intraoperative fluoroscopic guidance for cystoscopy and stent placement. Refer to operative notes for details.
== END 2017-09-18 14:05 ==
LOC: ERH 15:44 → ERHI 17:31 → ENRESERV 18:23 → ENTRNSPT 19:58 → EDTRNSPTSTS 20:06 → 2NA 20:15 → CMPTRNSPT 20:19 → ENTRNSPT 09-18 10:28 → EDTRNSPTSTS 09-18 10:32 → EDTRNSPT 09-18 10:32 → CMPTRNSPT 09-18 10:47 → ENPENDDIS 09-18 10:56 → 2NA 09-18 14:05
PROVIDERS: Physician Assistant
DX: N20.1 Calculus of ureter (principal); F41.9 Anxiety disorder, unspecified; F32.9 Major depressive disorder, single episode, unspecified; R50.9 Fever, unspecified; N20.0 Calculus of kidney; Z87.442 Personal history of urinary calculi
CPT/HCPCS: 76000; 81001; 82436; 87086; 93005; 93010; 96374; 96375; C2617; G0378; J0131; J0696; J2405; J3490; J7042

== ENCOUNTER → 2017-09-26 | Day surgery (SDC) | payer OTHER ==
[~2017-09-26] VITALS: Ht 160 cm; Wt 117.9 kg
[~2017-09-26] MED LIST changes: +CIPRO500 M1 PO
--- NOTE | 2017-09-26 12:02 | Operative Report ---
Operative/Inv Procedure Report Surgery Date: 09/26/17 Name of Procedure: right ESWL Pre-Operative Diagnosis: right UPJ stone with stent already in place Post-Operative Diagnosis: right UP stone Estimated Blood Loss: scant Surgeon/Grades 9 Through 12 Teacher: Liz Neely MD Anesthesia: local monitored anesthesi Complications: none Condition: stable Operative Indication: right renal stone Operative/Procedure Note Note: 27yo female with a hx of RUQ pain on 09/11/17 accompanied by nausea and diarrhea that morning which prompted a ER visit. CT scan demonstrated a Right UPJ stone 5mm in size. She has never had kidney stones before and has no fam hx either. She drinks water and juice but admits her urine is usually dark yellow. She has been drinking more water since the kidney stone diagnosis. She has no irritative urinary sx and no voiding complaints. No hx of urinary incontinence. She has no hx of hematuria or chronic UTIs. She has a MJ smoking habit QOD. She opted for right ESWL after having a stent placed urgently for obstructing stone recently. She was given the risks, benefits and alternatives in the office and holding area. All questions were answered before she signs the consent. She was marked on the right side. Patient was taken to the OR and placed in the supine position. She was optimally placed and time out was performed. The stone was identified in the UP rather than the UPJ. IV antibiotics were infused and IV sedation was begun. She had a total of 2500 shocks at a range of power 1-20. She tolerated the well and was transferred to the recovery room in stable condition. The stone was visibly changed at the end of the procedure. Findings: stone visibly changed at the end of the case Discharge Disposition: Same Day Admissions
== END ==
LOC: STS 03:41
DX: N20.0 Calculus of kidney (principal); R10.11 Right upper quadrant pain
CPT/HCPCS: 81025; J0690; J2250; J2405